=== PATIENT | female | born 1975 | race Hispanic/Latino ===

== ENCOUNTER 2019-01-29 21:39 | Emergency (ER) | payer OTHER, SELFPAY ==
[2019-01-29 22:20] LABS: APPEARANCE,URINE CLOUDY (CLEAR); BILIRUBIN,URINE NEGATIVE (NEGATIVE); COLOR,URINE YELLOW (YELLOW); GLUCOSE, URINE (UA) NEGATIVE (NEGATIVE); KETONES,URINE NEGATIVE (NEGATIVE); LEUKOCYTE ESTERASE ,URINE MODERATE (NEGATIVE); NITRATE,URINE NEGATIVE (NEGATIVE); OCCULT BLOOD,URINE LARGE (NEGATIVE); PROTEIN,URINE 30 mg/dL (NEGATIVE); UROBILINOGEN,URINE 0.2 mg/dL (0.2-1.0)
[2019-01-29 22:21] LABS: HCG,QUAL RESULT NEGATIVE (NEGATIVE)
[2019-01-29 22:28] LABS: BACTERIA,URINE Few /HPF (None Seen)
[2019-01-29 22:29] LABS: SQUAMOUS EPITHELIAL CELL,UR Few /HPF (0-2)
[2019-01-29] MEDS ORDERED: LIDOCAINE HCL 1% 20 ML VIAL ONE (22:33)
[2019-01-29] MEDS ORDERED: PHENAZOPYRIDINE HCL 200 MG TABLET ONE (22:33)
[2019-01-29] MEDS ORDERED: CEFTRIAXONE SODIUM 1 GM ONE (22:33)
== END 2019-01-29 23:16 | disposition home or self-care (01) ==
LOC: EDH 21:39
DX: N30.00 Acute cystitis without hematuria (principal); Z72.0 Tobacco use
CPT/HCPCS: 81001; 81025; 96372; 99284; J0696